=== PATIENT | male | born 1985 | race Caucasian/White ===

== ENCOUNTER 2016-07-10 19:51 | Emergency (ER) | payer MEDICAID ==
[~2016-07-10] VITALS: Ht 177.8 cm; Wt 79.4 kg
[~2016-07-10 19:51] MED LIST: ABILIFY10 MG; BACTRIM DS 8001 TA1 PO; BACTRIM DS 8001 TAB PO; FLEXERIL10 MG PO; KEFLEX 500MG.500 MG PO; NOMEDS *; NOMEDS XX; PREDNISONE 20MG20 MG PO; TORADOL10 MG PO
--- NOTE | 2016-07-10 20:22 | Emergency Room Report ---
History of Present Illness Time Seen by 2008 Presenting Problem in Triage Pt arrived:Walked Presenting Problem:PT RPTS HE HAD A "LITTLE PIMPLE ON MY FINGER TWO DAYS AGO, I POPPED IT THIS MORNING AND HOW IT'S ALL SWOLLEN." PT RPTS HX OF MRSA. PT DENIES TRAUMA TO MIDDLE FINGER ON LEFT HAND. 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 N Clinical Suspician of Infection? N Mental Status: 1 - Regular (Normal Baseline) Sepsis Risk:Low Sepsis Risk Have you (or family members/close friends) recently traveled outside the [place]? N If Yes, where/when: Have you had exposure to infectious disease within the past month? N TB? Other? Specify: Comment The patient complains of an infection of his LEFT middle finger. He says that yesterday morning he woke up with a pimple on the dorsum of his LEFT middle finger, middle phalanx. He squeezed it. Today he woke up and his whole finger was red and swollen and painful with redness extending onto his dorsal hand and palm. He says he has a history of MRSA. ALLERGIES Coded Allergies: No Known Allergies (07/10/16) Home Medications Reported Medications No Known Home Medications History Medical History General CAD? No Angina: No RI: No Hypertension? No Hyperlipidemia? No CHF? No DVT? No PE? No COPD? No Asthma? No Anemia? No GERD? No Gastric ulcers? No GI Bleed? No Hernia? No Thyroid Problems? No Hypothyroidism? No CVA? No Seizures? No Diabetes? No Insulin Dependent: No Insulin Pump: No Home FSBS? No Renal Insuffiency? No End Stage Renal Disease? No UTI? No Stones? No BPH? No GB Disease: No Nephritic Syndrome? No Asplenia? No Hepatitis? No Sickle Cell Disease? No Arthritis? No Migraines? No Cataracts? No Glaucoma? No MRSA? Yes HIV? No TB? No Anxiety? No Depression? No Cancer? No More? No Immunization Hx DT/Tetanus 03/18/11 Surgical Hx Previous Surgery?N Social History Smoking Hx Smoker: Never Smoker Tobacco: No Alcohol Alcohol: No Review of Systems All Other Systems Reviewed and Negative Constitutional denies fever Musculoskeletal see HPI Psychiatric/Neurological denies numbness Physical Exam Vital Signs Vital Signs Date Time Temp Pulse Resp B/P Pulse O2 O2 Flow FiO2 Ox Delivery Rate 07/11 2127 98.7 96 18 139/80 100 07/10 2117 98.7 96 18 139/80 100 07/10 2038 98.6 75 18 145/95 98 07/10 1956 98.3 99 18 120/73 99 General Appearance normal appearance Respiratory Status No: respiratory distress. Cardiovascular regular rate/rhythm, normal peripheral pulses Extremities there is a shallow ulcer in scab on the dorsum of his LEFT middle finger middle phalanx., his entire LEFT middle finger is edematous, sausage- shaped, and erythematous circumferentially. There is erythema extending onto the dorsum of his metacarpals and into his palm., tenderness along the flexor tendon sheath into his palm. He is unable to passively or actively extend his RIGHT middle finger due to severe pain. Normal sensation and capillary refill distally. Neurologic alert, no motor/sensory deficits Medical Decision Making LABS/Meds/Orders Pt receiving controlled substance in ED? No Results/Orders Laboratory Tests 07/10/162054: Lactic Acid 1.4 07/10/162054: Sodium 136, Potassium 3.4 L, Chloride 101, Carbon Dioxide 28, BUN 5 L, Creatinine 0.9, Estimated Creat Clear 135, Estimated GFR (MDRD) 99, Glucose 102, Calcium 8.6, WBC 9.4, RBC 5.20, Hgb 14.4, Hct 41.9 L, MCV 80.6 L, RDW 13.8, Plt Count 177, MPV 6.2 L, Gran % 63.6, Gran # 6.0, Lymphocytes % 27.3, Monocytes % 5.8, Eosinophils % 3.1, Basophils % 0.2, Lymphocytes # 2.6, Monocytes # 0.5, Eosinophils # 0.3, Basophils # 0.0, PUBS MCHC 34.3, MCH 27.6 Current Medication Orders Sig/Jelani Start time Last Medication Dose Route Stop Time Status Admin Vancomycin HCl 1,500 MG ONCE ONE 07/10 2114 CANr Sodium Chloride 250 ML IV 07/10 2313 Sodium Chloride 250 ML .STK-MED ONE 07/10 2056 DC IV Vancomycin HCl 0 .STK-MED ONE 07/10 2054 DC .ROUTE Sodium Chloride 0 .STK-MED ONE 07/10 2053 DC IV Vancomycin HCl 0 .STK-MED ONE 07/10 2052 DC .ROUTE Sodium Chloride 10 ML PRN PRN 07/10 2044 DCD IV 07/11 2041 Vancomycin HCl 1,000 MG ONCE ONE 07/10 2044 CAN Sodium Chloride 250 ML IV 07/11 2243 Orders Procedure Date/time Status HAND-LT-3 VIEWS 07/10 2042 Active IV SALINE LOCK 07/10 2042 Active CULTURE, BLOOD 07/10 2042 Active LACTIC ACID 07/10 2042 Complete CBC WITH AUTO DIFF 07/10 2042 Complete BASIC METABOLIC PROFILE 07/10 2042 Complete XRAY/CT/US XRAY/CT/US XRAY hand Comment Interpreted by Dell Prakash MD. Negative for fracture, dislocation, or foreign body. No air in the soft tissues seen. Progress - 8:40 PM: Case discussed with Dr. Lyons, hand surgeon communications technician [facility]. He accepts the patient in transfer to their emergency department. 9:10 PM: The patient has arranged a ride by private vehicle. He does not want to be sent by ambulance. He says his ride can only take them now, and he cannot wait to get the antibiotics. He prefers to be transferred down by private vehicle without antibiotics being administered. He is to go straight to [facility] emergency department now. Departure Departure Disposition DC/XFER from ER to [facility] Clinical Impression Primary Impression: Flexor tenosynovitis of finger Condition STABLE Referrals Naga DICKERSON,Alex Farfan (Family) Prescriptions Current Visit Scripts No Known Home Medications ED Critical Care Critical Care No at 0016
[2016-07-10 21:07] LABS: HEMOGLOBIN 14.4 g/dL (14.1-18.0); LYMPH # 2.6 K/mm3 (0.7-4.5); LYMPH % 27.3 % (10-50)
[2016-07-10 21:28] VITALS: BP 139/80
--- NOTE | 2016-07-11 11:04 | RADIOLOGY REPORT PS360 ---
HAND-LT-3 VIEWS Ordering Physician: Dell Prakash MD Patient Age: 30 years: Male HISTORY: infected LMFpainful infected left middle finger 2 days TECHNIQUE: 3 views left hand FINDINGS No radiopaque foreign body is evident and hand or third finger.. Diffuse soft tissue swelling at the middle finger, which appear to continue into the the hand, most evident dorsal aspect of hand.. Osseous structures appear intact with no destructive nor erosive changes at cortex joint spaces well-maintained IMPRESSION: No radiopaque foreign body evident. Prominent Diffuse soft tissue swelling of middle finger. Most evident about the PIP joint region. . Swelling continues to the hand
--- OUTSIDE RECORDS SUMMARY | 2016-07-12 01:43 | External Medical Summary Rpt ---
Author Author , Organization [employer] Address Unknown Phone Unavailable Care Team Providers Care Supervisor Engraving Name Role Phone JOZEF WASHINGTON Unavailable Unavailable LUKE JOZEF WASHINGTON Unavailable Unavailable LUKE [facility] Unavailable Unavailable INC, [facility] Unavailable Unavailable HOSPITAL P, [facility] SHERRY ALI, Unavailable Unavailable SHERRY ALI SOKAN BAB, SOKAN BAB Unavailable Unavailable [facility] Unavailable Unavailable [facility], [facility] ADRIAN DIR, ADRIAN Unavailable Unavailable DIR Purpose Continuity of Care Document - 09-01-2012 through 2016 Problems Code Diagnosis DOS Provider Status 6820 CELLULITIS 05-02-2014 SHERRY AND ABSCESS ALI OF FACE 7840 HEADACHE 05-02-2014 SHERRY ALI 7842 SWELLING 05-02-2014 SHERRY MASS OR ALI LUMP IN HEAD AND NECK 7048 OTHER 05-01-2014 [facility] P HAIR&HAIR FOLLICLES 4139 OTHER AND 12-30-2013 [place] UNSPECIFIED [facility] INC [place] 6822 CELLULITIS 12-30-2013 [facility] AND ABSCESS N EMERGENCY OF TRUNK PHYSI V700 ROUTINE 12-27-2013 JOZEF BUTLER GENERAL MEDICAL [email or web address] [email or web address] FACL 24977 UNSPECIFIED 09-13-2013 JOZEF BUTLER URETHRITIS M65.9 SYNOVITIS AND TENOSYNOVIT IS, UNSPECIFIED S39.012A STRAIN OF MUSCLE, FASCIA AND TENDON OF LOWER BACK, INIT Medications Na ND Rx Da Fi Fi Am Da Di Ph RX Ph St me C No te ll ll ou ys ag ar # ys at rm s nt no ma ic us Or Da si cy ia de te s n re d BU 00 01 02 90 30 00 EA Ac SP 09 -0 -[address] ti IR 30 9- 0- 00 00 SI ve ON 20 20 47 DE E 30 17 17 17 HC 5 09 PH L AR 5 MA MG CY TA OF BL CY ET NT HI AN A IN C DC 00 01 02 30 30 00 EA Ac RT 09 -0 -[address] ti AZ 37 9- 0- 00 00 SI ve AP 20 20 20 47 DE IN 65 17 17 17 E 6 07 PH 15 AR MA MG CY TA OF BL CY ET NT HI AN A IN C BU 10 01 02 30 30 00 EA Ac FL 37 -0 -[address] ti OP 00 9- 0- 00 00 SI ve IO 10 20 20 47 DE N 10 17 17 17 HC 3 06 PH L AR XL MA CY 15 0 OF MG CY NT TA HI BL AN ET A IN C TR 50 01 02 30 30 00 EA Ac AZ 11 -0 -[address] ti OD 10 9- 0- 00 00 SI ve ON 43 20 20 47 DE E 30 17 17 17 50 2 08 PH AR MG MA CY TA BL OF ET CY NT HI AN A IN C Results Labs Lab Lab Date Result Refere Interp Status Commen Order Detail nces retati t Range on CHLAMYDIA AND GONORRHEA TESTING (09-01-2012 09:25) Chlamyd NEGATIV complet ia 013 E ed trachom 09:25 atis rRNA [Presen ce] in Unspeci fied specime n by Probe & target amplifi cation method Neisser NEGATIV complet ia 013 E ed gonorrh 09:25 oeae rRNA [Presen ce] in Unspeci fied specime n by Probe & target amplifi cation method CHLAMYDIA AND GONORRHEA TESTING (09-01-2012 09:25) COLLECT SB complet OR 013 ed 09:25 ETHNICI WHITE, complet TY 013 NON-HIS ed 09:25 PANIC KIT complet EXPIRAT 013 3 ed ION 09:25 DATE SYMPTOM NO complet S 013 ed 09:25 REASON VOLUNTE complet FOR 013 ER/MEDI ed REQUEST 09:25 NANDO PROBLEM SPECIME URINE complet N 013 ed SOURCE 09:25 PREGNAN NO complet T 013 ed 09:25 CHART [id number] complet NUMBER 013 ed 09:25 Chlamyd Pending complet ia 013 ed trachom 09:25 atis rRNA [Presen ce] in Unspeci fied specime n by Probe & target amplifi cation method Neisser Pending complet ia 013 ed gonorrh 09:25 oeae rRNA [Presen ce] in Unspeci fied specime n by Probe & target amplifi cation method Procedures Procedure DOS Code Location Performer Comment COLLECTIO 59982 [facility] N VENOUS 5 [facility] VENIPUNCT URE COMPREHEN 00175 [facility] SIVE 5 [facility] METABOLIC [facility]OSP PANEL INJECTION J2405 [facility] 5 [facility]AN[facility]R [facility] HOSP ON HCL PER 1 MG LOCM Q9967 [facility] 300-399 5 [facility] MG/ML HOSP [place] [address] [facility] MAXILLOFA 5 [facility] CIAL [facility] HOS[facility] W/CONTRAS T MATERIAL INJECTION J1170 [facility] 5 [facility] HYDROMORP [facility]P HOSP KEREN UP TO 4 MG BLOOD 84712 [facility] COUNT 5 [facility] COMPLETE [facility]OS[facility] HOSP AUTO&AUTO DIFRNTL WBC CULTURE 55064 [facility] BACTERIAL 5 [facility]OD [facility] HOS[place] AEROBIC W/[place] [address] [facility] INFUSION 5 [facility] THERAPY/P HOSP HOSP ROPHYLAXI S /DX 1ST TO 1 HR THERAPEUT 27628 [facility] IC 5 [facility] INJECTION HOSP HOSP IV PUSH EACH NEW DRUG INJECTION J0712 [facility] 5 [facility] CEFTAROLI [facility]OSP HOSP NE FOSAMIL 10 MG CUL BACT 60374 [facility] XCPT 4 [facility] URINE INC INC BLOOD/STO OL AEROBIC ISOL CUL BACT 05879 [facility] AEROBIC 4 [facility] ADDL INC INC METHS DEFINITIV E EA ISOL SUSCEPTIB 48679 [facility] LTY STDY 4 [facility] ANTIMICRB INC INC IAL MICRO/AGA R DILUTJ INCISION 93439 [facility] & 4 [facility] DRAINAGE INC INC ABSCESS SIMPLE/SI NGLE INCISION 68123 [facility] BAB & 4 [place]ANI[place]A DRAINAGE EMERGENCY ABSCESS PHYSI COMPLICAT ED/MULTIP LE THERAPEUT 52192 [facility] IC 4 [facility] PROPHYLAC INC INC TIC/DX INJECTION SUBQ/IM Encounters Encounter Start End Date Code Location Performer Type Date EMERGENCY 25469 [facility] 5 5 [facility] DEPARTMEN [facility] T VISIT MODERATE SEVERITY [facility]OSPITAL [facility] - 5 5 [facility] OUTPATIEN [facility] T EMERGENCY 54891 [facility] DE[facility] 5 5 EMERGENCY DIR VISIT PHYS PSC HIGH SEVERITY& THREAT [facility] S[facility]ID[facility] - 5 5 MEM [facility] OUTPATIEN INC T EMERGENCY 12944 [facility] 5 5 MEM [facility] DEPARTMEN INC T VISIT LOW/MODER SEVERITY EMERGENCY 92316 [facility] BAB 4 4 SHANIQUA DEPARTMEN EMERGENCY T VISIT PHYSI HIGH/URGE NT SEVERITY HOSPITAL S[facility] - 4 4 MEM [facility] OUTPATIEN INC T OFFICE 45621 JOZEF CORDOVA 4 4 LUKE LUKE T VISIT 40 MINUTES OFFICE 50273 JOZEF CORDOVA 4 4 LUKE LUKE T VISIT 15 MINUTES
--- OUTSIDE RECORDS SUMMARY | 2016-07-12 01:43 | External Medical Summary Rpt ---
Author Author , Organization [employer] Address Unknown Phone Unavailable Care Team Providers Care Blender Helper Name Role Phone JOZEF WASHINGTON Unavailable Unavailable LUKE JOZEF WASHINGTON Unavailable Unavailable [facility], Un[facility]available [facility] Unavailable Unavailable INC, [facility] Unavailable Unavailable HOSPITAL P, [facility] SHERRY ALI, Unavailable Unavailable SHERRY ALI SHERRY ALI, Unavailable Unavailable SHERRY ALI SOKAN BAB, SOKAN BAB Unavailable Unavailable [facility], [facility] ADRIAN DIR, ADRIAN Unavailable Unavailable DIR Purpose Continuity of Care Document - 09-13-2013 through 2016 Problems Code Diagnosis DOS Provider Status 6820 CELLULITIS 05-02-2014 SHERRY AND ABSCESS ALI OF FACE 7840 HEADACHE 05-02-2014 SHERRY ALI 7842 SWELLING 05-02-2014 SHERRY MASS OR ALI LUMP IN HEAD AND NECK 7048 OTHER 05-01-2014 [facility] P HAIR&HAIR FOLLICLES 4139 OTHER AND 12-30-2013 [place] UNSPECIFIED [facility] INC [place] 6822 CELLULITIS 12-30-2013 [facility] AND ABSCESS N EMERGENCY OF TRUNK PHYSI V700 ROUTINE 12-27-2013 JOZEF BUTLER GENERAL MEDICAL [email or web address] [email or web address] FACL 44856 UNSPECIFIED 09-13-2013 JOZEF BUTLER URETHRITIS Medications Na ND Rx Da Fi Fi Am Da Di Ph RX Ph St me C No te ll ll ou ys ag ar # ys at rm s nt no ma ic us Or Da si cy ia de te s n re d TR 50 01 02 30 00 EA Ac AZ 11 -0 -[address] ti OD 10 9- 0- 00 00 SI ve ON 43 20 20 47 DE E 30 17 17 17 50 2 08 PH AR MG MA CY TA BL OF ET CY NT HI AN A IN C BU 10 03 15 29 30 00 EA Ac TX 37 -0 -[address] ti OP 00 9- 0- 00 00 SI ve IO 10 20 20 47 DE N 10 17 17 17 HC 3 06 PH L AR XL MA CY 15 0 OF MG CY NT TA HI BL AN ET A IN C VA 00 02 30 30 00 EA Ac RT 09 -0 -[address] ti AZ 37 9- 0- 00 00 SI ve AP 20 20 20 47 DE IN 65 17 17 17 E 6 07 PH 15 AR MA MG CY TA OF BL CY ET NT HI AN A IN C BU 00 01 02 90 30 00 EA Ac SP 09 -0 -[address] ti IR 30 9- 0- 00 00 SI ve ON 05 20 20 47 DE E 30 17 17 17 HC 5 09 PH L AR 5 MA MG CY TA OF BL CY ET NT HI AN A IN C Procedures Procedure DOS Code Location Performer Comment COMPREHEN 43936 [facility] SIVE 5 [facility]OLIC [facility]OSP PANEL LOCM Q9967 [facility] 300-399 5 [facility] MG/ML HOSP HOSP IODINE CONCENTRA TION PER ML INJECTION J2405 [facility] 5 [facility] ONDANSETR HOSP HOSP ON HCL PER 1 MG COLLECTIO 07971 [facility] N VENOUS 5 [facility] BLOOD [facility] HOSP VENIPUNCT URE INJECTION J1170 [facility] 5 [facility] HYDROMORP HOSP HOS[place] [address] [place] [address] SHERRY SHERRY MAXILLOFA 5 ALI ALI CIAL W/CONTRAS T MATERIAL INJECTION J0712 [facility] 5 [facility] CEFTAROLI HOSP HOSP NE FOSAMIL 10 MG BLOOD 33015 [facility] COUNT 5 [facility] COMPLETE HOSP HOSP AUTO&AUTO DIFRNTL WBC CULTURE 39957 [facility] BACTERIAL 5 [facility] BLOOD [facility]OS[facility] HOS[place] AEROBIC W/[place] [address] [facility] INFUSION 5 [facility] THERAPY/P HOSP HOSP ROPHYLAXI S /DX 1ST TO 1 HR THERAPEUT 43045 [facility] IC 5 [facility] INJECTION HOSP HOSP IV PUSH EACH NEW DRUG CUL BACT 41564 [facility] XCPT 4 MEM [facility] URINE INC INC BLOOD/STO OL AEROBIC ISOL CUL BACT 10-19-201 59580 [facility] AEROBIC 4 [facility] ADDL INC INC METHS DEFINITIV E EA ISOL SUSCEPTIB 05728 [facility] LTY STDY 4 [facility] ANTIMICRB INC INC IAL MICRO/AGA R DILUTJ INCISION 52217 [facility] HEAD & 4 MEM [facility] DRAINAGE INC INC ABSCESS SIMPLE/SI NGLE INCISION 58321 [facility] 4 [facility] DRAINAGE EMERGENCY ABSCESS PHYSI COMPLICAT ED/MULTIP LE THERAPEUT 32671 [facility] IC 4 MEM [facility] PROPHYLAC INC INC TIC/DX INJECTION SUBQ/IM Encounters Encounter Start End Date Code Location Performer Type Date [facility] [place] 5 5 [facility] T EMERGENCY 21838 [facility] DEPT 5 5 EMERGENCY DIR VISIT PHYS PSC HIGH SEVERITY& THREAT FUNJ EMERGENCY 76409 [place] 5 5 [facility] HOSP T VISIT MODERATE SEVERITY [facility] - 5 5 [facility] OUTPATIEN [facility] T EMERGENCY 37501 [facility] 5 5 [facility] T VISIT P LOW/MODER SEVERITY [facility] S[facility] - 4 4 [facility]IEN [facility] T EMERGENCY 58173 [facility] BAB 4 4 SH[facility]QUA [facility] EMERGENCY T VISIT PHYSI HIGH/URGE NT SEVERITY OFFICE 17995 JOZEF CORDOVA 4 4 LUKE LUKE T VISIT 40 MINUTES OFFICE 55420 JOZEF CORDOVA 4 4 LUKE LUKE T VISIT 15 MINUTES
--- OUTSIDE RECORDS SUMMARY | 2016-07-12 01:43 | External Medical Summary Rpt ---
Author Author , Organization [employer] Address Unknown Phone Unavailable Care Team Providers Care Flap Presser Name Role Phone JOZEF WASHINGTON Unavailable Unavailable LUKE JOZEF WASHINGTON Unavailable Unavailable [facility], Unavailable Unavailable [facility] Unavailable Unavailable INC, [facility] Unavailable Unavailable HOSPITAL P, [facility] SHERRY ALI, Unavailable Unavailable SHERRY ALI SHERRY ALI, Unavailable Unavailable SHERRY ALI SOKAN BAB, SOKAN BAB Unavailable Unavailable [facility]available Unavailable [facility], [facility] ADRIAN DIR, ADRIAN Unavailable Unavailable DIR Purpose Continuity of Care Document - 09-13-2013 through 2016 Problems Code Diagnosis DOS Provider Status 6820 CELLULITIS 05-02-2014 SHERRY AND ABSCESS ALI OF FACE 7840 HEADACHE 05-02-2014 SHERRY ALI 7842 SWELLING 05-02-2014 SHERRY MASS OR ALI LUMP IN HEAD AND NECK 7048 OTHER 05-01-2014 [facility] P HAIR&HAIR FOLLICLES 4139 OTHER AND 12-30-2013 [place] UNSPECIFIED [facility] ANGIN[facility] INC [place] 6822 CELLULITIS 12-30-2013 [facility] AND ABSCESS N EMERGENCY OF TRUNK PHYSI V700 ROUTINE 12-27-2013 JOZEF BUTLER GENERAL MEDICAL [email or web address] [email or web address] FACL 92874 UNSPECIFIED 09-13-2013 JOZEF BUTLER URETHRITIS Medications Na [...] 03 15 29 30 00 EA Ac NC 37 -0 -[address] ti OP 00 9- 0- 00 00 SI ve IO 10 20 20 47 DE N 10 17 17 17 HC 3 06 PH L AR XL MA CY 15 0 OF MG CY NT TA HI BL AN ET A IN C OR 00 02 30 30 00 EA Ac [...] Procedure DOS Code Location Performer Comment COMPREHEN 04978 [facility] SIVE 5 [facility] PANEL LOCM Q9967 [facility] 300-399 5 [facility] MG/ML HOSP HOSP IODINE CONCENTRA TION PER ML INJECTION J2405 [facility] 5 [facility] OND[facility]R [facility] HOSP ON HCL PER 1 MG COLLECTIO 70276 [facility] N VENOUS 5 [facility] BLOOD [facility] HOSP VENIPUNCT URE INJECTION J1170 [facility] 5 [facility] HYDROMORP HOSP HOSP [place] [address] [place] [address] SHERRY SHERRY MAXILLOFA 5 ALI ALI CIAL W/CONTRAS T MATERIAL INJECTION J0712 [facility] 5 [facility] CEFT[facility]OLI [facility] HOSP NE FOSAMIL 10 MG BLOOD 77600 [facility] COUNT 5 [facility] COMPLETE [facility]OS[facility] HOSP AUTO&AUTO DIFRNTL WBC CULTURE 71936 [facility] BACTERIAL 5 [facility] BLOOD [facility]OS[facility] HOSP AEROBIC W/[place] [address] [facility] INFUSION 5 [facility] THERAPY/P HOSP HOSP ROPHYLAXI S /DX 1ST TO 1 HR THERAPEUT 00535 [facility] IC 5 [facility] INJECTION HOSP HOSP IV PUSH EACH NEW DRUG CUL BACT 99573 [facility] XCPT 4 MEM [facility] URINE INC INC BLOOD/STO OL AEROBIC ISOL CUL BACT 10-19-201 04001 [facility] AEROBIC 4 [facility] ADDL INC INC METHS DEFINITIV E EA ISOL SUSCEPTIB 82329 [facility] LTY STDY 4 [facility] ANTIMICRB INC INC IAL MICRO/AGA R DILUTJ INCISION 00931 [facility] & 4 MEM [facility] DRAINAGE INC INC ABSCESS SIMPLE/SI NGLE INCISION 72985 [facility] BAB & 4 [place] DRAINAGE EMERGENCY ABSCESS PHYSI COMPLICAT ED/MULTIP LE THERAPEUT 29781 [facility] IC 4 MEM H[facility] PROPHYLAC INC INC TIC/DX INJECTION SUBQ/IM Encounters Encounter Start End Date Code Location Performer Type Date [facility] - 5 5 [facility]EN [facility] T EMERGENCY 79954 [facility] DEPT 5 5 EMERGENCY DIR VISIT PHYS PSC HIGH SEVERITY& THREAT FUNJ EMERGENCY 74518 [place] 5 5 [facility] HOSP T VISIT MODERATE SEVERITY [facility] SONIDO - 5 5 [facility] OUTPATIEN [facility] T EMERGENCY 01608 [place] [address] [facility] T VISIT P LOW/MODER SEVERITY [facility] SONID[place] - 4 4 [facility] T EMERGENCY 32684 [facility] BAB 4 4 [place] [facility] EMERGENCY T VISIT PHYSI HIGH/URGE NT SEVERITY OFFICE 47702 JOZEF CORDOVA 4 4 LUKE LUKE T VISIT 40 MINUTES OFFICE 95280 JOZEF CORDOVA 4 4 LUKE LUKE T VISIT 15 MINUTES
--- OUTSIDE RECORDS SUMMARY | 2016-07-12 01:43 | External Medical Summary Rpt ---
Author Author , Organization [employer] Address Unknown Phone Unavailable Care Team Providers Care Patient Registrar Name Role Phone JOZEF WASHINGTON Unavailable Unavailable LUKE JOZEF WASHINGTON Unavailable Unavailable [facility] Unavailable Unavailable [facility], [facility] Unavailable Unavailable [facility]PITAL P, [facility] SHERRY ALI, Unavailable Unavailable SHERRY ALI SOKAN BAB, SOKAN BAB Unavailable Unavailable [facility] Unavailable Unavailable [facility], [facility] ADRIAN DIR, ADRIAN Unavailable Unavailable DIR Purpose Continuity of Care Document - 09-01-2012 through 2016 Problems Code Diagnosis DOS Provider Status 6820 CELLULITIS 05-02-2014 SHERRY AND ABSCESS ALI OF FACE 7840 HEADACHE 05-02-2014 SHERRY ALI 7842 SWELLING 05-02-2014 SHERRY MASS OR ALI LUMP IN HEAD AND NECK 7048 OTHER 05-01-2014 [facility] P HAIR&HAIR FOLLICLES 4139 OTHER AND 12-30-2013 [place] UNSPECIFIED [facility] ANGIN[facility] INC [place] 6822 CELLULITIS 12-30-2013 [facility] AND ABSCESS N EMERGENCY OF TRUNK PHYSI V700 ROUTINE 12-27-2013 JOZEF BUTLER GENERAL MEDICAL [email or web address] FACL 22981 UNSPECIFIED 09-13-2013 JOZEF BUTLER URETHRITIS M65.9 SYNOVITIS [...] ET NT HI AN A IN C LA 00 01 02 30 30 00 EA [...] 01 02 30 30 00 EA Ac RI 37 -0 -[address] ti [...] NO complet T 013 ed 09:25 CHART [id number] complet NUMBER 013 ed 09:25 Chlamyd Pending complet ia 013 ed trachom 09:25 atis rRNA [Presen ce] in Unspeci fied specime n by Probe & target amplifi cation method Neisser Pending complet ia 013 ed gonorrh 09:25 oeae rRNA [Presen ce] in Unspeci fied specime n by Probe & target amplifi cation method Procedures Procedure DOS Code Location Performer Comment COLLECTIO 24700 [facility] VENIPUNCT URE COMPREHEN 79741 [facility] SIVE 5 [facility]ABOLIC [facility] PANEL INJECTION J2405 [facility] ONDAN[facility]R [facility] ON HCL PER 1 MG LOCM Q9967 [facility] 300-399 5 [facility] MG/ML [facility] H[place] [address] [facility] MAXILLOFA 5 [facility] CIAL [facility] W/CONTRAS T MATERIAL INJECTION J1170 [facility] HYDROMORP [facility] HOSP KEREN UP TO 4 MG BLOOD 94981 [facility] COUNT 5 [facility] COMPLETE [facility] AUTO&AUTO DIFRNTL WBC CULTURE 74012 [facility] BACTERIAL 5 [facility] AEROBIC W/[place] [address] [facility] INFUSION 5 [facility] THERAPY/P [facility] ROPHYLAXI S /DX 1ST TO 1 HR THERAPEUT 56863 [facility] IC 5 [facility] INJECTION [facility] HOSP IV PUSH EACH NEW DRUG INJECTION J0712 [facility] CEFTAROLI [facility]OS[facility] NE FOSAMIL 10 MG CUL BACT 66444 [facility] XCPT 4 [facility] URINE INC INC BLOOD/STO OL AEROBIC ISOL CUL BACT 06683 [facility] AEROBIC 4 [facility] ADDL INC INC METHS DEFINITIV E EA ISOL SUSCEPTIB 03366 [facility] LTY STDY 4 [facility] ANTIMICRB INC INC IAL MICRO/AGA R DILUTJ INCISION 08573 [facility] & 4 [facility] DRAINAGE INC INC ABSCESS SIMPLE/SI NGLE INCISION 48910 [facility] & 4 [facility] DRAINAGE EMERGENCY ABSCESS PHYSI COMPLICAT ED/MULTIP LE THERAPEUT 73301 [facility] IC 4 [facility] PROPHYLAC INC INC TIC/DX INJECTION SUBQ/IM Encounters Encounter Start End Date Code Location Performer Type Date EMERGENCY 70513 [place] 5 [facility] T VISIT MODERATE SEVERITY [facility] [place] [facility] T EMERGENC[facility] [facility] DEPT 5 5 EMERGENCY DIR VISIT PHYS PSC HIGH SEVERITY& THREAT [facility] - 5 5 [facility] OUTPATIEN INC T EMERGENCY 81977 [facility] 5 5 [facility] DEPARTMEN INC T VISIT LOW/MODER SEVERITY EMERGENCY 56433 [facility] 4 4 [facility] EMERGENCY T VISIT PHYSI HIGH/URGE NT SEVERITY [facility]OSPITAL [facility] - 4 4 [facility] OUTPATIEN INC T OFFICE 21340 JOZEF CORDOVA 4 4 LUKE LUKE T VISIT 40 MINUTES OFFICE 74367 JOZEF CORD[facility] 4 4 LUKE LUKE T VISIT 15 MINUTES
--- OUTSIDE RECORDS SUMMARY | 2016-07-12 01:44 | External Medical Summary Rpt ---
Demographics Preferred Language Turkish Marital Status Unknown Confucianist Affiliation Unknown Race Unknown Ethnic Group Unknown Author Author , Organization [employer] Address Unknown Phone Unavailable Purpose Continuity of Care Document - through 2016 Immunization No patient found.
--- OUTSIDE RECORDS SUMMARY | 2016-07-12 01:44 | External Medical Summary Rpt ---
Demographics Preferred Language Nigerian Marital Status Unknown Methodist Affiliation Unknown Race Unknown Ethnic Group Unknown Author Author , Organization [employer] Address Unknown Phone Unavailable Purpose Continuity of Care Document - through 2016 Immunization No patient found.
--- OUTSIDE RECORDS SUMMARY | 2016-07-12 01:44 | External Medical Summary Rpt ---
Author Author [employer], [employer] Organization [employer] Address Unknown Phone Unavailable Results CHLAMYDIA AND GONORRHEA TESTING Observa Value Referen Units Interpr Notes Date tion ce etation Range COLLECT SB No No No No Sep 01 OR informa informa informa informa 2013 tion in tion in tion in tion in 9:25 AM source source source source data data data data ETHNICI WHITE, No No No No Sep 01 TY NON-HIS informa informa informa informa 2013 PANIC tion in tion in tion in tion in 9:25 AM source source source source data data data data KIT 11-30-1 No No No No Sep 01 EXPIRAT 3 informa informa informa informa 2013 ION tion in tion in tion in tion in 9:25 AM DATE source source source source data data data data SYMPTOM NO No No No No Sep 01 S informa informa informa informa 2013 tion in tion in tion in tion in 9:25 AM source source source source data data data data REASON VOLUNTE No No No No Sep 01 FOR ER/MEDI informa informa informa informa 2013 REQUEST NANDO tion in tion in tion in tion in 9:25 AM PROBLEM source source source source data data data data SPECIME URINE No No No No Sep 01 N informa informa informa informa 2013 SOURCE tion in tion in tion in tion in 9:25 AM source source source source data data data data PREGNAN NO No No No No Sep 01 T informa informa informa informa 2013 tion in tion in tion in tion in 9:25 AM source source source source data data data data CHART [id number] No No No No Sep 01 NUMBER informa informa informa informa 2013 tion in tion in tion in tion in 9:25 AM source source source source data data data data Chlamyd NEGATIV No No No NEGATIV Sep 01 ia E informa informa informa E 2013 trachom tion in tion in tion in RESULT= 9:25 AM atis source source source WITHIN rRNA data data data NORMAL [Presen ce] in LIMITSP Unspeci OSITIVE fied specime RESULT= n by Probe & ABNORMA target LEQUIVO NANDO amplifi RESULT= cation method INDETER MINATEU NSATISF ACTORY RESULT= INVALID Neisser NEGATIV No No No NEGATIV Sep 01 ia E informa informa informa E 2013 gonorrh tion in tion in tion in RESULT= 9:25 AM oeae source source source WITHIN rRNA data data data NORMAL [Presen ce] in LIMITSP Unspeci OSITIVE fied specime RESULT= n by Probe & ABNORMA target LEQUIVO NANDO amplifi RESULT= cation method INDETER MINATEU NSATISF ACTORY RESULT= INVALID THE APTIMA COMBO 2 ASSAY IS NOT INTENDE D FOR THE EVALUAT ION OF SUSPECT EDSEXUA L ABUSE OR FOR OTHER MEDICO- LEGAL INDICAT IONS. FOR THOSE PATIENT S FORWHOM A FALSE POSITIV E RESULT MAY HAVE ADVERSE PSYCHO- SOCIAL IMPACT, [facility].\.br \This report contain s patient informa tion that must be protect ed in accorda nce with the Health Insuran ce Portabi lity and Account ability Act. CHLAMYDIA AND GONORRHEA TESTING Observa Value Referen Units Interpr Notes Date tion ce etation Range COLLECT SB No No No No Sep 01 OR informa informa informa informa 2013 tion in tion in tion in tion in 9:25 AM source source source source data data data data ETHNICI WHITE, No No No No Sep 01 TY NON-HIS informa informa informa informa 2013 PANIC tion in tion in tion in tion in 9:25 AM source source source source data data data data KIT 11-30-1 No No No No Sep 01 EXPIRAT 3 informa informa informa informa 2013 ION tion in tion in tion in tion in 9:25 AM DATE source source source source data data data data SYMPTOM NO No No No No Sep 01 S informa informa informa informa 2013 tion in tion in tion in tion in 9:25 AM source source source source data data data data REASON VOLUNTE No No No No Sep 01 FOR ER/MEDI informa informa informa informa 2013 REQUEST NANDO tion in tion in tion in tion in 9:25 AM PROBLEM source source source source data data data data SPECIME URINE No No No No Sep 01 N informa informa informa informa 2013 SOURCE tion in tion in tion in tion in 9:25 AM source source source source data data data data PREGNAN NO No No No No Sep 01 T informa informa informa informa 2013 tion in tion in tion in tion in 9:25 AM source source source source data data data data CHART [id number] No No No No Sep 01 NUMBER informa informa informa informa 2013 tion in tion in tion in tion in 9:25 AM source source source source data data data data Chlamyd Pending No No No No Sep 01 ia informa informa informa informa 2013 trachom tion in tion in tion in tion in 9:25 AM atis source source source source rRNA data data data data [Presen ce] in Unspeci fied specime n by Probe & target amplifi cation method Neisser Pending No No No \.br\Sep 01 ia informa informa informa is 2013 gonorrh tion in tion in tion in report 9:25 AM oeae source source source contain rRNA data data data s [Presen patient ce] in Unspeci informa fied tion specime that n by must be Probe & target protect ed in amplifi accorda cation nce method with the Health Insuran ce Portabi lity and Account ability Act.
--- OUTSIDE RECORDS SUMMARY | 2016-07-12 01:44 | External Medical Summary Rpt ---
[...] source source data data data data CHART [id number] No No No No Sep 01 NUMBER [...] MAY HAVE ADVERSE PSYCHO- SOCIAL IMPACT, [facility].\.br \This report contain [...] source source data data data data CHART [id number] No No No No Sep 01 NUMBER [...]
== END 2016-07-10 21:38 | disposition short-term general hospital (02) ==
LOC: ER 19:51
PROVIDERS: Emergency Medicine
DX: M65.842 Other synovitis and tenosynovitis, left hand (principal); Z22.322 Carrier or suspected carrier of Methicillin resistant Staphylococcus aureus